=== PATIENT | female | born 1945 | race Hispanic/Latino ===

== ENCOUNTER 2019-08-13 16:20 | Outpatient (CLI) | payer MEDICARE ==
--- NOTE | 2019-08-13 16:44 | XRay Report ---
CHEST 2 VIEWS INDICATION / CLINICAL INFORMATION: COUGH. COMPARISON: None available. FINDINGS: SUPPORT DEVICES: None. HEART / MEDIASTINUM: No significant abnormality. LUNGS / PLEURA: No significant pulmonary or pleural abnormality. No pneumothorax. ADDITIONAL FINDINGS: No significant additional findings. IMPRESSION: 1. No acute findings. Signer Name: Daniele Mallory MD Signed: 08/13/2019 4:40 PM Workstation Name: [id number]
== END 2019-08-13 16:21 | disposition home or self-care (01) ==
LOC: SPVIMAG 16:20
PROVIDERS: ATTEND Internal Medicine
DX: R05 Cough (principal)
CPT/HCPCS: 71046